=== PATIENT | male | born 1955 | race African-American/Black ===

== ENCOUNTER → 2020-10-02 15:09 | Outpatient (CLI) | payer OTHER, MEDICAID ==
[2011-09-27 13:50] VITALS: BMI 39.1
== END | disposition home or self-care (01) ==
LOC: D.US 15:09
PROVIDERS: ATTEND Thoracic Surgery (Cardiothoracic Vascular Surgery)
DX: M79.661 Pain in right lower leg (principal); M79.662 Pain in left lower leg